=== PATIENT | female | born 1975 | race Caucasian/White ===

== ENCOUNTER → 2021-10-30 | Outpatient (CLI) | payer OTHER ==
[~2021-10-30] MED LIST: IBUPROFEN200 MG PO; IRON325 PO; KEFLEX500 M1 PO; MINOCIN100 MG PO; SULFAMETHOXAZO1 EAC1 PO; TRAMADOL 50 MG50 MG PO
== END ==
LOC: RAD 13:05
PROVIDERS: ATTEND Surgery
DX: R07.89 Other chest pain (principal)

== ENCOUNTER → 2021-11-16 | Day surgery (SDC) | payer OTHER ==
[~2021-11-16] VITALS: Ht 180.3 cm; Wt 83.7 kg
[~2021-11-16] MED LIST changes: +ALLEGRA ALLERGY60 MG PO; +BACTRIM DS TAB1 EACH PO; +HYDROCODON-ACE1 EAC7 PO; +IBUPROFEN 800800 M1 PO; +KEFLEX500 MG PO; +NORCO 5-325 TA1 EACH PO; +ZOFRAN ODT4 MG PO
[2021-11-16 09:27] VITALS: BP 106/70
[2021-11-16 09:41] LABS: HEMATOCRIT 43.6 % (37.0-47.0); HEMOGLOBIN 14.6 gm/dL (12.0-15.0)
[2021-11-16 09:53] LABS: ALBUMIN 3.3 g/dL (3.4-5.0); DIRECT BILIRUBIN 0.1 mg/dL (<0.1-0.2); TOTAL BILIRUBIN 0.4 mg/dL (0.2-1.0); TOTAL PROTEIN 7.3 g/dL (6.4-8.2)
[2021-11-16 13:07] VITALS: BP 106/70
--- NOTE | 2021-11-20 15:07 | PATH ---
[facility] [address] [address] PATHOLOGY RPT PROCEDURE Name: JOSHUA Room #: REG [facility] M.R.#: [id number] Admission: 11/16/21 Date of : 77 Discharge: Report #: [id number] Path Case #: [id number] [facility] Accession Number: [id number] . 01 Material submitted: . gallbladder - GALLBLADDER . 01 Clinical history: . LAPAROSCOPIC CHOLECYSTECTOMY . 02 Diagnosis: Gallbladder, excision: - Cholesterolosis; negative for malignancy. (ARCENIO:mckay; 11/19/2021) R 11/19/2021 [facility] Local . 02 Electronically signed: . Manoj Cintron MD, Pathologist NPI- [id number] . 01 Gross description: . Fixative: Formalin Labeled: Gallbladder Specimen received: opened Dimensions: 6.1 x 3.2 x 1.2 cm Serosa: Smooth, regalado-green and glistening with a roughened hepatic bed Lymph node: No Mucosa: Velvety green-brown with regalado-yellow stippling Average wall thickness: 0.4 cm Calculi: No Abnormalities: No A1- Galley Stripper body, fundus, and the cystic duct margin(inked black). ([facility]; 11/17/2021) GZA/GZA 11/17/2021 1510 Local . 02 Pathologist provided ICD-10: K82.4 . 02 CPT . 801459 Specimen Comment: A courtesy copy of this report has been sent to [phone], [phone] Specimen Comment: [phone] Specimen Comment: Report sent to / DR SAM Performed at: 01 [facility] [address] [place] [id number] [address] PATHOLOGY RPT PROCEDURE Name: JOSHUA Room #: REG LISETTE Rich#: [id number] Admission: 11/16/21 Date of : 77 Discharge: Report #: [id number] Path Case #: [id number] MD Duglas Pino MD Phone: [phone] Performed at: 02 [facility] [address] [id number] MD Lio Trevino MD Phone: [phone]
--- NOTE | 2021-11-21 12:14 | O ---
[facility] [address] [place] [address] OPERATIVE REPORT Name: JOSHUA,APRIL Room #: [place] [facility] [place] M..#: [id number] Admission: 11/16/21 Attend Phys: Louis Aly MD Discharge: Date of : 77 Report #: [id number] THIS REPORT FOR: cc: Nubia Chen Beth RNP Chu, Peter Y. MD ~ DATE OF SERVICE: 11/16/2021 PREOPERATIVE DIAGNOSES: Cholecystitis with history of common bile duct stone, status post ERCP last February,. Persistent right upper quadrant pain. POSTOPERATIVE DIAGNOSES: Cholecystitis with history of common bile duct stone, status post ERCP last February,. Persistent right upper quadrant pain. PROCEDURES PERFORMED: Laparoscopic cholecystectomy with intraoperative cholangiogram. SURGEON: Louis Aly MD ANESTHESIA: General anesthesia. COMPLICATIONS: None. BLOOD LOSS: 5 mL. FINDINGS: Common bile duct is normal on intraoperative cholangiogram. Adhesion found over the ventral surface of the gallbladder consistent with chronic inflammation. Cholesterolosis seen in the wall of the gallbladder, no distinct stones found. PROCEDURE NOTE: With the patient under general anesthesia, abdomen was prepped and draped in sterile fashion. Timeout was performed. The patient did receive preoperative IV antibiotics. A 0.25% Marcaine was used to anesthetize the skin below the umbilicus. A curvilinear incision was made infraumbilically. Fascia was identified, grasped with hemostat. The fascia was opened between the hemostat. A 0 Vicryl suture was then placed on the edges of the fascia for retraction. With the abdominal wall lifted anteriorly, Veress needle was then placed through peritoneum. Abdominal cavity was insufflated with CO2. CO2 was established without difficulty. An 11 mm trocar was then placed through the peritoneum under visualization, no harm to underlying tissue. Laparoscopic evaluation shows a little bit of the gallbladder underneath the liver. The liver is normal in architecture and appearance. When the gallbladder was lifted up, there was quite a bit of adhesion to the ventral surface of the gallbladder and the liver. Right adjacent to the medial aspect of the gallbladder, there is a small reddish, linear shaped area, which does look like a small hemangioma. This is probably 1 cm in length x 4 mm in width. It is reddish compared to the [facility] [address] [place] [address] OPERATIVE REPORT Name: Room #: REG [facility] [place] M.R.#: [id number] Admission: 11/16/21 Attend Phys: Louis Aly MD Discharge: Date of : 77 Report #: [id number] rest of the liver. The patient also had omental adhesion inferior to the umbilicus from her prior or hysterectomy. Bowel all looks normal. The patient was placed in the reverse Trendelenburg position, the right side tilted up. The adhesion to the gallbladder was taken down using cautery and blunt dissection. The gallbladder was isolated without difficulty. The proximal portion of the gallbladder was identified. There was no stone at the cystic duct, gallbladder junction. The cystic artery was tucked underneath the cystic duct. I was able to come around the cystic duct, isolating it, and then I can see the artery. The common duct is barely visible medially and posteriorly located. The cystic duct junction to the gallbladder was isolated and a clip was placed here. An opening was made in the cystic duct. The cystic duct was then milked and had clear bile come out. Cholangiogram catheter was placed in the cystic duct easily. Cystic duct is slightly dilated. Fluoroscopic cholangiogram was obtained. Common bile duct is slightly dilated and no filling defect in the common duct. The cholangiogram catheter identified in the cystic duct. No harm to the common duct. The cholangiogram catheter was then removed. The proximal cystic duct was then clipped x 2 and then divided. The cystic artery did come in an anterior medial branch and a posterior larger branch. These were isolated, clipped individually. Gallbladder was then divided from the liver without difficulty. Gallbladder was then removed through the 11 mm infraumbilical port, came out easily and the gallbladder was opened off the field and the gallbladder had a significant cholesterolosis. There is a couple of cholesterol deposit, about a millimeter in size attached to the wall, I did not see any formed stones. She may have passed them or she may have been passing them. Gallbladder was then handed off in a specimen container for pathology. Liver bed was checked, hemostasis obtained. The clips were intact, no bleeding, no free bile identified. Irrigation was performed, irrigation was then aspirated out. CO2 was evacuated. The patient was then flattened out. The trocar was then removed with evacuation of CO2 as much as possible. The fascial defect infraumbilically was easily identified with the stay stitches on it and the fascia was closed with [id number] 0 Vicryl x 2. Skin was irrigated, closed with 5-0 PDS. Steri-Strips applied. Band-Aid was used for dressing. The patient tolerated the procedure well and was taken to recovery room. <ELECTRONICALLY SIGNED> By: Louis Aly MD 11/21/21 1214 1450 1701 Louis Aly MD /nt
== END | disposition home or self-care (01) ==
LOC: OR 08:25
PROVIDERS: ATTEND Surgery
DX: K80.10 Calculus of gallbladder with chronic cholecystitis without obstruction (principal); M19.90 Unspecified osteoarthritis, unspecified site; Z87.891 Personal history of nicotine dependence; Z79.899 Other long term (current) drug therapy; Z98.890 Other specified postprocedural states
CPT/HCPCS: 50010; 50101; 50411; 50555; 51489; 52265; 53307; 53310; 55245; 55317; 56462; 56525; 58574; 58910; 62110; 62900; 70005